=== PATIENT | male | born 1930 | race Caucasian/White ===

== ENCOUNTER 2017-05-15 14:55 | Emergency (ER) | payer MEDICARE, BC ==
[~2017-05-15 14:55] MED LIST: Sodium Chloride Irrig Solution 250 ML BOT ONE
[2017-05-15] MEDS ORDERED: Triple Antibiotic Oint 1 GM Packet ONE (15:04)
== END 2017-05-15 15:45 | disposition home or self-care (01) ==
LOC: MADERS 14:55
DX: S51.812A Laceration without foreign body of left forearm, initial encounter (principal); S51.811A Laceration without foreign body of right forearm, initial encounter; K21.9 Gastro-esophageal reflux disease without esophagitis; I25.10 Atherosclerotic heart disease of native coronary artery without angina pectoris; I48.91 Unspecified atrial fibrillation; I10 Essential (primary) hypertension; E78.5 Hyperlipidemia, unspecified; F41.9 Anxiety disorder, unspecified; F32.9 Major depressive disorder, single episode, unspecified; W19.XXXA Unspecified fall, initial encounter
CPT/HCPCS: 99282

== ENCOUNTER 2018-03-31 16:28 | Emergency (ER) | payer MEDICARE, BC ==
[~2018-03-31 16:28] MED LIST changes: +Iopamidol 370 76% 100 ML VIAL ONE; +Sodium Chloride 0.9% 1,000 ML BAG ONE; -Sodium Chloride Irrig Solution 250 ML BOT ONE
[2018-03-31 17:36] LABS: Bilirubin Small (Negative); Blood, Urine Trace (Negative); Glucose, Urine (Dipstick) Negative (Negative); Leukocyte Negative (Negative); Nitrite Negative (Negative); Protein, Urine (Dipstick) 100 mg/dL (Neg-Trace); Urobilinogen 0.2 mg/dL (0.2-1.0)
[2018-03-31 17:41] LABS: CKMB 1.4 ng/mL (0-6.6); Troponin I Less than 0.010 ng/mL (< 0.028)
[2018-03-31 17:44] LABS: ALT (SGPT) 13 U/L (8-55); AST (SGOT) 21 U/L (5-34); Albumin 3.6 g/dL (3.4-4.8); Alkaline Phosphatase 92 U/L (40-150); Anion Gap 18 mmol/L (10-20); BUN (Urea Nitrogen) 21 mg/dL (8.4-25.7); Bilirubin, Total 1.9 mg/dL (0.2-1.2); Calc. Creatinine Clearance 0 mL/min (70-130); Calcium 9.4 mg/dL (7.8-10.44); Carbon Dioxide 21 mmol/L (23-31); Chloride 106 mmol/L (98-107); Estimated GFR-MDRD 61; Globulin 1.9 g/dL (2.4-3.5); Glucose 147 mg/dL (83-110); Potassium 4.5 mmol/L (3.5-5.1); Protein, Total 5.5 g/dL (5.8-8.1); Sodium 140 mmol/L (136-145)
[2018-03-31 17:51] LABS: Clarity Slightly Cloudy (Clear)
[2018-03-31 17:52] LABS: Bacteria/HPF 3+ HPF (None Seen); RBC/HPF 0-3 HPF (0-3); Specific Gravity, Urine 1.032 (1.002-1.036); Squamous Epithelial 0-3 HPF (0-3); WBC/HPF None Seen HPF (0-3)
[2018-03-31 17:58] LABS: Band 2 % (5-11); Eosinophils 2 % (0-10); Hemoglobin 16.1 g/dL (14.0-18.0); Lymphocytes 23 % (21-51); MDiff Complete? YES; Mean Corpuscular HGB CONC 32.3 g/dL (32.0-36.0); Mean Corpuscular Hemoglobin 27.8 pg (27.0-31.0); Mean Corpuscular Volume 86.1 fl (80.0-94.0); Mean Platelet Volume 5.8 fL (7.4-10.4); Monocytes 2 % (0-10); Neutrophil 71 % (42-75); PLT Morphology Comment Appears Adequate; Platelet Count 244 thou/uL (130-400); RBC Distribution Width 13.6 % (11.5-14.5); Red Blood Cell (RBC) Count 5.79 mill/uL (4.70-6.10); White Blood Cell (WBC) Count 22.1 thou/uL (4.8-10.8)
[2018-03-31] MEDS ORDERED: Morphine 4 MG/ML VIAL ONE (18:05)
[2018-03-31] MEDS ORDERED: diphenhydrAMINE 50 MG/ML VIAL ONE (18:05)
[2018-03-31 18:07] LABS: INR-International Normal Ratio 1.3; PTT 28.6 SEC (22.9-36.1)
[2018-03-31] MEDS ORDERED: metroNIDAZOLE 500 MG/100 ML BAG ONE (18:58)
--- NOTE | 2018-03-31 19:45 | CT ---
CT OF THE ABDOMEN AND PELVIS WITH CONTRAST: 03/31/18 COMPARISON: None. HISTORY: Right lower quadrant abdominal pain and sepsis. Elevated laboratory values. TECHNIQUE: Multiple contiguous axial images were obtained in a CT of the abdomen an pelvis with contrast. Noble l reformats were performed. FINDINGS: The gallbladder is distended and has surrounding stranding changes. this could be secondary to acute cholecystitis. No intrahepatic biliary dilatation is seen. Subcentimeter hypodensities in the liver a re too small to definitely characterize but likely represents small cysts. No dilatation of the commo n bile duct is seen. The kidneys, adrenal glands, spleen, and pancreas are unremarkable. No free air or free fluid are see n in the abdomen or pelvis. Scattered diverticula are seen in the colon. The colon is decompressed. There are prominent small bow el loops measuring up to 3.2 cm in size without definite transition point. No abdominal or pelvic lymphadenopathy are seen. Atherosclerotic calcifications are seen in the aorta . Degenerative changes are seen in the spine. Atelectasis is seen in both lung bases. Abdominal wall so ft tissues are unremarkable. IMPRESSION: 1. Distended gallbladder with surrounding stranding changes may be secondary to acute cholecysti tis. A right upper quadrant abdominal ultrasound is recommended for better evaluation. 2. Diverticulosis. 3. Mildly prominent loops of small bowel. This could be secondary to an ileus or partial small b owel obstruction. 4. Bibasilar atelectasis. POS: [facility]
== END 2018-03-31 20:16 | disposition short-term general hospital (02) ==
LOC: MADERS 16:28
DX: K81.0 Acute cholecystitis (principal); K56.600 Partial intestinal obstruction, unspecified as to cause; K21.9 Gastro-esophageal reflux disease without esophagitis; I25.10 Atherosclerotic heart disease of native coronary artery without angina pectoris; I48.91 Unspecified atrial fibrillation; E03.9 Hypothyroidism, unspecified; E78.5 Hyperlipidemia, unspecified; I10 Essential (primary) hypertension; F41.9 Anxiety disorder, unspecified; F32.9 Major depressive disorder, single episode, unspecified; Z79.899 Other long term (current) drug therapy
CPT/HCPCS: 51701; 74177; 80053; 81003; 81015; 82274; 82553; 83605; 84484; 85025; 85610; 85730; 87040; 96361; 96365; 96368; 96375; J1200; J1956; J2270; J3370; J7050

== ENCOUNTER 2018-10-11 11:25 | Emergency (ER) | payer MEDICARE, BC ==
[~2018-10-11 11:25] MED LIST changes: -Iopamidol 370 76% 100 ML VIAL ONE; -Sodium Chloride 0.9% 1,000 ML BAG ONE; +Sodium Chloride 0.9% 100 ML BAG ONE
[2018-10-11] MEDS ORDERED: Lorazepam 2 MG/ML VIAL ONE (11:41)
[2018-10-11 11:52] LABS: Prothrombin Time 13.4 SEC (12.0-14.7)
[2018-10-11 12:03] LABS: ALT (SGPT) 22 U/L (8-55); AST (SGOT) 15 U/L (5-34); Albumin 4.1 g/dL (3.4-4.8); Alkaline Phosphatase 73 U/L (40-150); Anion Gap 26 mmol/L (10-20); BUN (Urea Nitrogen) 30 mg/dL (8.4-25.7); Bilirubin, Total 0.9 mg/dL (0.2-1.2); Calc. Creatinine Clearance 0 mL/min (70-130); Calcium 9.4 mg/dL (7.8-10.44); Carbon Dioxide 15 mmol/L (23-31); Chloride 103 mmol/L (98-107); Estimated GFR-MDRD 57; Globulin 1.8 g/dL (2.4-3.5); Glucose 198 mg/dL (83-110); Potassium 3.6 mmol/L (3.5-5.1); Protein, Total 5.9 g/dL (5.8-8.1); Sodium 140 mmol/L (136-145)
[2018-10-11 12:05] LABS: Bicarbonate (HCO3v) 18.2 mmol/L (22.0-29.0); CO2 Tension (PvCO2) 58.4 mmHg (41.0-51.0); O2 Tension (PvO2) 187.9 mmHg (35.0-45.0); pH (Venous) 7.102 (7.35-7.45)
[2018-10-11 12:06] LABS: Hemoglobin - Calc 16.9 g/dL (12.0-18.0); Potassium 3.9 mmol/L (3.4-4.7); vO2 Saturation-calc 99.1 % (94-98)
[2018-10-11] MEDS ORDERED: Aspirin 300 MG Suppository ONE (12:06)
[2018-10-11] MEDS ORDERED: Cefepime 1 GM VIAL ONE (12:06)
[2018-10-11 12:07] LABS: Calcium, Ionized 1.24 mmol/L (1.12-1.32)
[2018-10-11 12:08] LABS: Hemoglobin 15.2 g/dL (14.0-18.0); Mean Corpuscular HGB CONC 31.9 g/dL (32.0-36.0); Mean Corpuscular Hemoglobin 30.2 pg (27.0-31.0); Mean Corpuscular Volume 94.6 fL (78.0-98.0); Mean Platelet Volume 5.2 fL (7.4-10.4); Platelet Count 290 thou/uL (130-400); RBC Distribution Width 12.8 % (11.5-14.5); Red Blood Cell (RBC) Count 5.05 mill/uL (4.70-6.10); White Blood Cell (WBC) Count 48.7 thou/uL (4.8-10.8)
[2018-10-11 12:10] LABS: Anisocytosis SLIGHT = 6-15 cells (100X) (0-5/hpf); Band 2 % (5-11); Lymphocytes 28 % (21-51); MDiff Complete? YES; Manual Diff?? YES; Neutrophil 68 % (42-75); Reactive Lymphocytes 2 % (0-10)
[2018-10-11 12:11] LABS: PLT Morphology Comment Appears Adequate
[2018-10-11 12:14] LABS: Base Excess-Venous -12.3 mmol/L (0 (+/- 2.5))
--- NOTE | 2018-10-11 12:34 | CT ---
NONCONTRAST HEAD CT: COMPARISON: 03/13/2018. HISTORY: Altered mental status. FINDINGS: No parenchymal hemorrhage. No extraaxial hematoma. No midline shift. Basilar cisterns are patent. Age-appropriate atrophy. Expected malacic changes involving the right temporal lobe in the region o f previously noted intraparenchymal hemorrhage. Otherwise, cerebral cortical ferraro-white matter diffe rentiation is preserved. No evidence of hydrocephalus. There are chronic small-vessel ischemic hughes ges of the white matter. Calvarium is intact. Adequate aeration of the sinuses and mastoid air cells. There is carotid navjot nous atherosclerosis. IMPRESSION: 1. Age-appropriate atrophy. 2. Malacic changes involving the right temporal lobe compatible with expected evolutionary changes i n the area of previous parenchymal hemorrhage. POS: [facility]
--- NOTE | 2018-10-11 12:43 | RAD ---
CHEST 1 VIEW: HISTORY: Chest pain. COMPARISON: Radiograph 06/14/2018. FINDINGS: Heart size mildly enlarged. Mild pulmonary venous congestion. 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 Dense calcifications of the aorta. IMPRESSION: Cardiomegaly and mild pulmonary venous congestion. POS: [facility]
== END 2018-10-11 13:01 | disposition short-term general hospital (02) ==
LOC: MADERS 11:25
DX: R41.82 Altered mental status, unspecified (principal); E87.2 Acidosis; R56.9 Unspecified convulsions; K21.9 Gastro-esophageal reflux disease without esophagitis; I25.10 Atherosclerotic heart disease of native coronary artery without angina pectoris; I48.91 Unspecified atrial fibrillation; E03.9 Hypothyroidism, unspecified; E78.5 Hyperlipidemia, unspecified; I10 Essential (primary) hypertension; Z79.899 Other long term (current) drug therapy
CPT/HCPCS: 70450; 71045; 80053; 82330; 82803; 83880; 84484; 85025; 85610; 93005; 96361; 96374; 96375; J0692; J2060; J7050